=== PATIENT | female | born 1985 | race Caucasian/White ===

== ENCOUNTER 2017-08-29 19:39 | Emergency (ER) | payer BC, MEDICAID, OTHER ==
[2017-08-29] MEDS ORDERED: Albuterol 6.7 GM Inhaler INH ONE ×2 (19:40→20:51)
[2017-08-29 20:00] VITALS: BP 104/63
--- NOTE | 2017-08-29 20:23 | EDM.PDOC ---
ED HPI GENERAL MEDICAL PROBLEM - General Chief Complaint: Chest Pain Stated Complaint: PAIN AND TIGHTNESS IN CHEST NASEA AND DIZZINESS Time Seen by Provider: 08/29/17 20:16 Source of Information: Reports: Patient History Limitations: Reports: No Limitations - History of Present Illness INITIAL COMMENTS - FREE TEXT/NARRATIVE: URI for one week, just completed Amoxicillin. Has had some mild chest tightness while on antibiotic, felt like when younger with asthma- sports induced. Tonight , increased on right radiating midsternal upper chest. Sharp. Cough dry. Runny nose, clear. Right Chest Pain Score (Numeric/FACES): 3 - Related Data Allergies Allergy/AdvReac Type Severity Reaction Status Date / Time nickel [Nickel] Allergy Rash Verified 08/29/17 20:01 Home Meds: Home Meds . [No Known Home Meds] 08/29/17 [History] Past Medical History - Past Health History Medical/Surgical History: Denies Medical/Surgical History - Past Surgical History HEENT Surgical History: Reports: Other (See Below) Other HEENT Surgeries/Procedures: wisdom teeth Female Surgical History: Reports: Section, Other (See Below) Other Female Surgeries/Procedures: c/section X3 and one surgery for an ectopic Social & Family History - Tobacco Use Smoking Status *Q: Never Smoker Second Hand Smoke Exposure: No - Caffeine Use Caffeine Use: Reports: Coffee - Alcohol Use Days Per Week of Alcohol Use: 1 Number of Drinks Per Day: 2 Total Drinks Per Week: 2 - Recreational Drug Use Recreational Drug Use: No ED ROS GENERAL - Review of Systems Review Of Systems: See Below Constitutional: Reports: No Symptoms HEENT: Reports: Rhinitis Respiratory: Reports: Pleuritic Chest Pain, Cough Cardiovascular: Reports: Lightheadedness, Palpitations GI/Abdominal: Reports: Nausea Skin: Reports: No Symptoms Neurological: Reports: No Symptoms ED EXAM, GENERAL - Physical Exam Exam: See Below Exam Limited By: No Limitations General Appearance: Alert, Anxious Eye Exam: Bilateral Eye: EOMI Ears: Normal External Exam, Normal Canal, Normal TMs Nose: Normal Inspection Throat/Mouth: Normal Inspection, Normal Lips, No Airway Compromise Head: Atraumatic, Normocephalic Neck: Normal Inspection, Lymphadenopathy (L), Lymphadenopathy (R) Respiratory/Chest: No Respiratory Distress, Lungs Clear, Normal Breath Sounds ( right), Decreased Breath Sounds Cardiovascular: Regular Rate, Rhythm GI/Abdominal: Normal Bowel Sounds Extremities: Normal Inspection Neurological: Alert, Oriented, Normal Cognition Psychiatric: Normal Affect, Anxious Skin Exam: Warm, Dry, Intact, Normal Color Course - Vital Signs Last Recorded V/S: Last Vital Signs Temp 98.7 F 08/29/17 19:59 Pulse 64 08/29/17 19:59 Resp 13 08/29/17 19:59 BP 104/63 08/29/17 19:59 Pulse Ox 100 08/29/17 19:59 - Orders/Labs/Meds Orders: Active Orders 24 hr Category Date Time Status EKG Documentation Completion [RC] URGENT Care 08/29/17 20:53 Active RT Aerosol Therapy [RC] ASDIRECTED Care 08/29/17 20:26 Active Labs: Laboratory Tests 08/29/17 08/29/17 Range/Units 20:15 20:15 WBC 7.1 (5.0-10.0) 10^3/uL RBC 4.30 (4.2-5.4) 10^6/uL Hgb 12.4 D (12.0-16.0) g/dL Hct 37.3 (37.0-47.0) % MCV 86.7 D (80-100) fL MCH 28.8 (27.0-34.0) pg MCHC 33.2 (33.0-35.0) g/dL Plt Count 200 (150-450) 10^3/uL Neut % (Auto) 58.3 (42.2-75.2) % Lymph % (Auto) 31.1 (20.5-50.1) % George % (Auto) 5.5 (2-8) % Eos % (Auto) 4.8 H (1.0-3.0) % Baso % (Auto) 0.3 (0.0-1.0) % Sodium 138 (135-145) mmol/L Potassium 4.3 (3.6-5.0) mmol/L Chloride 103 (101-111) mmol/L Carbon Dioxide 28.0 (21.0-31.0) mmol/L Anion Gap 11.3 BUN 12 (7-18) mg/dL Creatinine 0.7 (0.6-1.3) mg/dL Est Cr Clr Drug Dosing 99.63 mL/min Estimated GFR (MDRD) > 60 BUN/Creatinine Ratio 17.14 Glucose 94 (74-105) mg/dL Calcium 9.0 (8.4-10.2) mg/dl Total Bilirubin 0.5 (0.2-1.0) mg/dL AST 14 (10-42) IU/L ALT 14 (10-60) IU/L Alkaline Phosphatase 51 (42-121) IU/L Troponin I < 0.02 (0.00-0.02) ng/ml Total Protein 6.9 (6.7-8.2) g/dl Albumin 4.2 (3.2-5.5) g/dl Globulin 2.7 Albumin/Globulin Ratio 1.56 Meds: Medications Discontinued Medications Generic Name Dose Route Start Last Admin Trade Name Freq PRN Reason Stop Dose Admin Albuterol 2.5 mg 08/29/17 20:25 08/29/17 20:50 Proventil Neb Soln NEB 08/29/17 20:26 2.5 mg ONETIME ONE Administration Albuterol Confirm 08/29/17 20:51 Proventil Hfa Administered 08/29/17 20:52 Dose 6.7 gm INH .STK-MED ONE Prednisone 20 mg 08/29/17 21:13 08/29/17 21:17 Prednisone PO 08/29/17 21:14 20 mg ONETIME ONE Administration - Radiology Interpretation Free Text/Narrative:: CXR: no acute process Departure - Departure Time of Disposition: 21:14 Disposition: Home, Self-Care 01 Condition: Good Clinical Impression: URI (upper respiratory infection) Qualifiers: URI type: unspecified viral URI Qualified Code(s): J06.9 - Acute upper respiratory infection, unspecified - Discharge Information Instructions: Asthma, Adult, [id number] Forms: ED Department Discharge Additional Instructions: increase fluids tylenol or ibuprofen for discomfort albuterol inhaler 2 puffs every 4 hours as needed for tightness, cough prednisone 20mg daily for one week clinic follow up as needed - My Orders Last 24 Hours: My Active Orders 08/29/17 20:26 RT Aerosol Therapy [RC] ASDIRECTED 08/29/17 20:53 EKG Documentation Completion [RC] URGENT - Assessment/Plan Last 24 Hours: My Active Orders 08/29/17 20:26 RT Aerosol Therapy [RC] ASDIRECTED 08/29/17 20:53 EKG Documentation Completion [RC] URGENT
[2017-08-29] MEDS ORDERED: Albuterol 0.083% 2.5 MG/3 ML Neb Soln NEB ONE (20:25)
[2017-08-29 20:59] LABS: ANION GAP 11.3; CHLORIDE,CL 103 mmol/L (101-111); SODIUM,NA 138 mmol/L (135-145)
[2017-08-29] MEDS ORDERED: predniSONE 20 MG Tab PO ONE (21:13)
--- NOTE | 2017-09-12 07:12 | EKG ---
08/29/2017 - CARROLL VALDIVIA - EKG done on a 32-year-old female showing sinus bradycardia, heart rate of 57 beats per minute. Normal axis. Normal intervals. No acute ST wave changes. [facility] /[id number]
== END 2017-08-29 21:30 | disposition home or self-care (01) ==
LOC: DL.ED 19:39
DX: J06.9 Acute upper respiratory infection, unspecified (principal); Z91.048 Other nonmedicinal substance allergy status
CPT/HCPCS: 36415; 71045; 80053; 84484; 85025; 93005; 99285; A9270; J7620

== ENCOUNTER 2017-10-20 05:52 | Day surgery (SDC) | payer OTHER ==
[2017-10-20] MEDS ORDERED: fentaNYL 100 MCG/2 ML SDV IV ONE ×3 (05:53→07:03)
[2017-10-20] MEDS ORDERED: Midazolam 1 MG/ML 2 ML SDV IV ONE ×3 (05:53→07:04)
[2017-10-20] MEDS ORDERED: fentaNYL 100 MCG/2 ML SDV ONE (06:15)
[2017-10-20] MEDS ORDERED: Midazolam 1 MG/ML 2 ML SDV ONE (06:15)
[2017-10-20] MEDS ORDERED: Dextrose 5%-0.45% NaCl 1,000 ML IV SCH (06:30)
--- NOTE | 2017-10-20 07:59 | OR ---
DATE: 10/20/2017 PROCEDURE: Esophagogastroduodenoscopy and multiple pinch biopsies. INSTRUMENT USED: GIF-H180 Olympus video panendoscope. PREMEDICATIONS: No oral topical anesthesia used. Fentanyl 100 mcg intravenous, Versed 2 mg intravenous. Nasal 2 L O2 cannula. The procedure was done under pulse oximetry, BP recording, and distribution operations manager. INDICATION: The patient with long-standing heartburn, unexplained, not responsive to medical measures, on high-dose PPI. Esophagogastroduodenoscopy is performed for detection of any active erosive lesions, Yarbrough esophagus and/or malignancy also under consideration, H. pylori status to be determined, biopsies to be taken for esophageal eosinophilia is indicated, endoscopic hemostasis therapy if needed. The scope was passed with ease. Adequate visualization of the esophagus was made from proximal to distal areas. No upper esophageal lesions identified. No distal esophageal stricture. No uphill or downhill esophageal varices. No Fadumo-Taylor tear. No evidence of erosive esophagitis by Cruger criteria. No esophageal polyp or tumor mass identified. Z-line was seen at around 40 cm distal to the oral verge, configuration consistent with grade 1 by ZAP classification. No proximal gastric varices noted. Gastric fundus examination by retroflexion showed no polypoid lesions. There was some amount of retention of solid food in the stomach limiting visualization of few areas. No gastric ulcer, malignant mass, or vascular ectasia identified. Duodenal bulb showed no ulcer. Visualized second part of the duodenum was unremarkable. Multiple pinch biopsies were taken from the gastric antrum and proximal body and sent for PyloriTek test for H. pylori and histopathology. Four-quadrant biopsies were taken from the distal and proximal esophagus and sent for any histopathologic evidence of esophageal eosinophilia. No bleeding was noted from any of the visualized areas at the completion of examination. Photographs were taken of the duodenal bulb, gastric antrum, fundus, and distal esophagus. IMPRESSION: Gastroparesis. The patient tolerated the procedure well. [facility] /[id number] NATALIE
[2017-10-20 09:15] VITALS: BP 98/51
== END 2017-10-20 09:10 | disposition home or self-care (01) ==
LOC: DL.ENDO 05:52 → DL.SDS 05:52 → DL.ENDO 09:10
PROVIDERS: ATTEND Internal Medicine Gastroenterology
DX: K29.50 Unspecified chronic gastritis without bleeding (principal); Z91.09 Other allergy status, other than to drugs and biological substances
CPT/HCPCS: 87077; J2250; J3010; J7042